=== PATIENT | female | born 1990 | race American Indian/Alaskan Native ===

== ENCOUNTER 2018-05-18 | Outpatient (CLI) | payer MEDICAID ==
[2018-05-18 00:27] VITALS: BP 118/71
--- NOTE | 2018-05-18 02:59 | Ultrasound Report ---
PROCEDURE: US OB BPP WO NON-STRESS TECHNIQUE: A limited OB sonogram was obtained for evaluation of the biophysical profile. HISTORY: decrease movement for BPP COMPARISONS: None FINDINGS: For breathing movements, a score of 2 out of 2 was obtained. For movements, score of 2 out of 2 was obtained. For posture and tone, a score of 2 out of 2 was obtained. Qualitative amniotic fluid volume, a score of 2 out of 2 was obtained. The heart rate is 152 BPM. IMPRESSION: Biophysical profile score is 8 out of 8.. This document is electronically signed by Tayo Swann MD., May 18 2018 02:57:26 AM ET
== END 2018-05-18 02:40 | disposition home or self-care (01) ==
LOC: TRG
PROVIDERS: ATTEND Obstetrics & Gynecology
DX: O47.03 False labor before 37 completed weeks of gestation, third trimester (principal); Z3A.28 28 weeks gestation of pregnancy
CPT/HCPCS: 76819

== ENCOUNTER 2018-06-13 00:11 | Outpatient (CLI) | payer MEDICAID ==
[2018-06-13] MEDS ORDERED: LACTATED RINGERS 500 ML IV ONE (00:27)
--- NOTE | 2018-06-13 01:45 | Ultrasound Report ---
PROCEDURE: US OB LIMITED TECHNIQUE: Real-time limited sonographic examination was performed for evaluation of well-bein g, labor for each fetus with image documentation (1 or more fetuses). HISTORY: pressure labor COMPARISONS: None . FINDINGS: There is a single fetus in a vertex presentation. The placenta is along the fundus of the uterus. The cervical length is 3.8 cm. heart rate 139 bpm. No other measurements are obtained on this stud y.. IMPRESSION: There is a single fetus in a vertex presentation. heart rate 139 bpm. The cervical length is 3. 8 cm. This document is electronically signed by Carly Pizarro DO., June 13 2018 01:43:42 AM ET
== END 2018-06-13 01:45 | disposition home or self-care (01) ==
LOC: TRG 00:11
PROVIDERS: ATTEND Obstetrics & Gynecology
DX: O26.893 Other specified pregnancy related conditions, third trimester (principal); R10.2 Pelvic and perineal pain; Z3A.32 32 weeks gestation of pregnancy
CPT/HCPCS: 59025; 76815

== ENCOUNTER 2018-06-26 20:37 | Outpatient (CLI) | payer MEDICAID ==
[2018-06-26] MEDS ORDERED: LACTATED RINGERS 500 ML IV ONE (21:09)
[2018-06-26 21:58] VITALS: BP 113/63
== END 2018-06-26 22:19 | disposition home or self-care (01) ==
LOC: TRG 20:37
PROVIDERS: ATTEND Obstetrics & Gynecology
DX: O62.8 Other abnormalities of forces of labor (principal); Z3A.34 34 weeks gestation of pregnancy
CPT/HCPCS: 59025

== ENCOUNTER 2018-07-10 21:30 | Outpatient (CLI) | payer MEDICAID ==
[2018-07-10 21:55] VITALS: BP 130/71
[2018-07-10] MEDS ORDERED: LACTATED RINGERS 500 ML IV ONE (21:56)
[2018-07-10 22:58] LABS: Hematocrit 28.4 % (30.3-42.9); Hemoglobin 9.3 gm/dl (10.1-14.3); Mean Corpuscular HGB Conc 33 % (30-34); Mean Corpuscular Volume 75 fl (79-97); Platelet Count 172 K/mm3 (140-440); Red Blood Count 3.76 M/mm3 (3.65-5.03); Red Cell Distribution Width 15.8 % (13.2-15.2)
[2018-07-11 00:28] LABS: Bacteria,Urine 1+ /HPF (Negative); Bilirubin,Urine NEG (Negative); Blood,Urine NEG (Negative); Color,Urine Yellow (Yellow); Mucus,Urine FEW /HPF; Protein,Urine <15 mg/dL mg/dL (Negative)
[2018-07-11 02:01] LABS: Alanine Aminotransferase 8 units/L (7-56); Albumin 2.9 g/dL (3.9-5); BUN/Creatinine Ratio 13; Blood Urea Nitrogen 5 mg/dL (7-17); Calcium 8.3 mg/dL (8.4-10.2); Hemolysis Index 6
== END 2018-07-11 02:45 | disposition home or self-care (01) ==
LOC: TRG 21:30
PROVIDERS: ATTEND Obstetrics & Gynecology
DX: O26.893 Other specified pregnancy related conditions, third trimester (principal); R42 Dizziness and giddiness; Z3A.36 36 weeks gestation of pregnancy
CPT/HCPCS: 36415; 59025; 80053; 81001; 85027; J7120; 96360; 96361

== ENCOUNTER 2018-07-26 20:40 | Outpatient (CLI) | payer MEDICAID ==
[2018-07-26 21:02] VITALS: BP 132/67
== END 2018-07-26 21:54 | disposition home or self-care (01) ==
LOC: TRG 20:40
PROVIDERS: ATTEND Obstetrics & Gynecology
DX: O47.1 False labor at or after 37 completed weeks of gestation (principal); Z3A.38 38 weeks gestation of pregnancy
CPT/HCPCS: 59025

== ENCOUNTER 2018-08-03 12:12 | Outpatient (CLI) | payer MEDICAID ==
[2018-08-03 16:24] VITALS: BP 129/74
== END 2018-08-03 17:09 | disposition home or self-care (01) ==
LOC: TRG 12:12
PROVIDERS: ATTEND Obstetrics & Gynecology
DX: O47.1 False labor at or after 37 completed weeks of gestation (principal); Z3A.39 39 weeks gestation of pregnancy
CPT/HCPCS: 59025

== ENCOUNTER 2018-08-03 19:01 | Inpatient (IN) | payer MEDICAID ==
[2018-08-03] MEDS ORDERED: BRETHINE SUB-Q PRN (19:36)
[2018-08-03] MEDS ORDERED: ZOFRAN IV PRN ×2 (19:36→22:03)
[2018-08-03] MEDS ORDERED: MINERAL OIL PO PRN (19:36)
[2018-08-03] MEDS ORDERED: PHENERGAN PO PRN ×2 (19:36→22:03)
[2018-08-03] MEDS ORDERED: SUBLIMAZE IV PRN (19:36)
[2018-08-03] MEDS ORDERED: XYLOCAINE 2% INFILTRATI ONE (19:36)
[2018-08-03] MEDS ORDERED: BRETHINE IVP PRN (19:36)
[2018-08-03] MEDS ORDERED: LACTATED RINGERS 1,000 ML IV SCH (20:00)
[2018-08-03] MEDS ORDERED: PITOCin/NS 20 UNIT/1000ML DRIP 20 UNITS/1,000 ML BAG IV SCH ×2 (20:00→22:03)
--- NOTE | 2018-08-03 20:42 | History and Physical Report ---
History of Present Illness Date of examination: 08/03/18 Date of admission: 08/03/18 19:25 Chief complaint: contractions History of present illness: Menstrual History Regularity: regular Duration: 5 LMP: 11/02/2017 LMP reliability: definite LMP character: normal test type: urine test Date: 04/07/2018 BC at conception: none Planned ? yes EDC Calculations LMP: 08/09/2018 EDC Confirmation: 08/09/2018 Gestational Age: 22 2/7 weeks Past History : 5 Term Births: 1 Premature Births: 0 Living Children: 1 Para: 1 Mult. Births: 0 Prev : 0 Aborta: 3 Elect. Ab: 0 Spont. Ab: 3 Ectopics: 0 # 1 Delivery date: 2009 Weeks Gestation: 6 Delivery type: SAB Comments: No D&C # 2 Delivery date: 04/10/2011 Weeks Gestation: 39 Delivery type: Hours of labor: 6 Anesthesia type: epidural Delivery location: [place] Sex: Female weight: 7-11 Name: Colin Comments: Elective induction kidney infection # 3 Delivery date: 2012 Weeks Gestation: ? Delivery type: SAB Comments: No D&C # 4 Delivery date: 2016 Weeks Gestation: 8 Delivery type: SAB Comments: No D&C Past Medical History: Negative Past Medical History Past Surgical History: umbilical hernia 6yo Family History Summary: Other family member - Has No Family History of Ovarvian Cancer - Entered On: 04/13/2018 Other family member - Has No Family History of Colon Cancer - Entered On: 04/13/2018 Other family member - Has No Family History of Breast Cancer - Entered On: 04/13/2018 Other family member - Has Family History of Hypertension - Entered On: 04/13/2018 General Comments - FH: Sarcoidosis Social History: Patient is [employer] Risk Factors: Smoked Tobacco Use: Never smoker Drug use: yes Substance: marijuana Alcohol use: yes Drinks per day: social Past Medical History Surgery (Non-obstetrics gyn): umbilical hernia 6yo Abnormal PAP: negative Uterine Anomaly: negative Family Hx: Sarcoidosis Social Hx: Patient is [employer] Infection History Hx of STD: none Personal hx. of genital herpes: no Genetic History Congenital Heart Defect: Mom: no Dad: no Ok Disease: Mom: no Dad: no Thalassemia Mom: no Dad: no Neural Tube Defect Mom: no Dad: no Down's Syndrome Mom: no Dad: no Daniel-Sachs Mom: no Dad: no Sickle Cell Disease/Trait Mom: no Dad: no Hemophilia Mom: no Dad: no Muscular Dystrophy Mom: no Dad: no Cystic Fibrosis Mom: no Dad: no Yodit Chorea Mom: no Dad: no Mental Retardation Mom: no Dad: no Fragile X Mom: no Dad: no Other Genetic/Chromosomal Disorder Mom: no Dad: no Child w/other defect Mom: no Dad: no Enviromental Exposures Xray Exposure: no Medication, drug, or alcohol use since LMP: no Chemical/Other Exposure: no Exposure to Cat Liter: no Active Medications (reviewed today): PLUS/IRON 27-1 MG ORAL TABLET ( VIT-FE FUMARATE-FA) 1 po q day as directed REGLAN TABLET (METOCLOPRAMIDE HCL TABS) Current Allergies (reviewed today): No known allergies Past History Past Medical History: other (see HPI) Past Surgical History: other (see HPI) ED SPECIAL EDUCATION TEACHER History: other (see HPI) Family/Genetic History: other (see HPI) Social history: other (see HPI) - Obstetrical History Expected Date of Delivery: 08/09/18 Actual Gestation: 39 Week(s) 2 Day(s) : 5 Medications and Allergies Allergies Allergy/AdvReac Type Severity Reaction Status Date / Time No Known Allergies Allergy Verified 06/13/18 00:32 Home Medications Medication Instructions Recorded Confirmed Last Taken Type No Known Home Medications [No 08/03/18 08/03/18 Unknown History Reported Home Medications] Active Meds: Active Medications Ephedrine Sulfate (Ephedrine Sulfate) 10 mg IV Q2M PRN PRN Reason: Hypotension Fentanyl (Sublimaze) 100 mcg IV Q2H PRN PRN Reason: Labor Pain Oxytocin/Sodium Chloride (Pitocin/Ns 20 Unit/1000ml Drip) 20 units in 1,000 mls @ 125 mls/hr IV DIRECT MANDO Lactated Ringer's (Lactated Ringers) 1,000 mls @ 125 mls/hr IV DIRECT MANDO Mineral Oil (Mineral Oil) 30 ml PO QHS PRN PRN Reason: Constipation Ondansetron HCl (Zofran) 4 mg IV Q8H PRN PRN Reason: Nausea And Vomiting Promethazine HCl (Phenergan) 25 mg PO Q6H PRN PRN Reason: Nausea And Vomiting Terbutaline Sulfate (Brethine) 0.25 mg SUB-Q ONCE PRN PRN Reason: Hyperstimulation/Hypertonicity Terbutaline Sulfate (Brethine) 0.25 mg IVP ONCE PRN PRN Reason: Hyperstimulation/Hypertonicity Review of Systems All systems: negative Genitourinary: leakage of fluid, contractions - Vital Signs Vital signs: Vital Signs Pulse BP 83 144/69 08/03/18 20:01 08/03/18 20:01 Temp Pulse Resp BP Pulse Ox 80 134/71 08/03/18 20:31 08/03/18 20:31 - Physical Exam Breasts: Cardiovascular: Regular rate, Normal S1, Normal S2 Lungs: Positive: Clear to auscultation, Normal air movement Abdomen: Positive: normal appearance, soft, normal bowel sounds. Negative: distention, tenderness Genitourinary (Female): Positive: normal external genitalia, normal perenium Vulva: both: normal Vagina: Positive: normal moisture. Negative: discharge Cervix: Negative: lesion, discharge Uterus: Positive: normal size, normal contour Adnexa: both: normal Anus/Rectum: Positive: normal perianal skin, heme negative. Negative: rectal mass, hemorrhoids Extremities: Deep Tendon Reflex Grade: Normal +2 - Obstetrical FHR: auscultation normal Results Result Diagrams: 08/03/18 20:19 All other labs normal. Assessment and Plan Patient presents to triage for c/o contractions SVE 7 per chiropractic assistant. Pt reports SROM, clear, 20 minutes prior to arrival. Pt transferred to R where she deliv ered spontaneously, vaginal delivery with shoulder dystocia. Orders in EMR. GBS negative.
--- NOTE | 2018-08-03 20:43 | Procedure Note ---
OB Delivery Note - Delivery Date of Delivery: 08/03/18 Operations Controller: ANICETO AQUINO Estimated blood loss: 300cc - Vaginal Delivery presentation: vertex Delivery position: OA (LILIBETH) Intrapartum events: shoulder dystocia (resolved in <60 seconds with McRobert's and suprapubic pressure) Delivery induction: none Delivery monitor: external FHT, external uterine Route of delivery: Delivery placenta: spontaneous Delivery cord: 3 umbilical vessels Episiotomy: none Delivery laceration: none (small vaginal abrasion, hemostatic, no repair needed) Anesthesia: none Delivery comments: Patient presented to triage for labor, SVE per RN is 7 cm. Pt reports SROM 20 minutes prior to arrival to hospital. Pt transferred to R and was complete, . Patient unmedicated and having difficulty maintaining control. Should dystocia noted after delivery of head, maternal effort in pushing is minimal. NICU and additional staff called to room for assistance with delivery. Delivery of anterior shoulder less than 60 seconds from time of delivery of head with McRobert's and suprapubic pressure maneuvers. Cord clamped x2 and cut by CNM, infant handed off to awaiting NICU/Resus team at [facility]. Placenta delivered complete and intact, 3vc. IM pitocin given as pt did not have IV access yet. Fundus is firm, ML, hemostasis achieved. Small vaginal abrasion noted, hemostatic, no repair necessary. VSSAF. Pt reports she is comfortable. Christina care provided. Infant apgars 8/9, weight 3979g . Infant to mother for skin to skin and initiation. Mother and LDR stable. - Infant A at 1 minute: 8 (3979grams) at 5 minutes: 9 Infant Gender: Male (8#)
[2018-08-03 21:50] LABS: Hematocrit 31.3 % (30.3-42.9)
[2018-08-03] MEDS ORDERED: TYLENOL PO PRN (22:03)
[2018-08-03] MEDS ORDERED: LANSINOH TP PRN (22:03)
[2018-08-03] MEDS ORDERED: TUCKS PAD TP PRN (22:03)
[2018-08-03] MEDS ORDERED: SODIUM CHLORIDE FLUSH SYRINGE 10 ML IV NR (22:03)
[2018-08-03] MEDS ORDERED: MILK OF MAGNESIA PO PRN (22:03)
[2018-08-03] MEDS ORDERED: DULCOLAX PR PRN (22:03)
[2018-08-03] MEDS ORDERED: BENADRYL PO PRN (22:03)
[2018-08-03 22:07] LABS: Hematocrit 31.1 % (30.3-42.9); Hemoglobin 9.9 gm/dl (10.1-14.3); Mean Corpuscular HGB Conc 32 % (30-34); Mean Corpuscular Volume 73 fl (79-97); Platelet Count 164 K/mm3 (140-440); Red Blood Count 4.24 M/mm3 (3.65-5.03); Red Cell Distribution Width 17.2 % (13.2-15.2)
[2018-08-03] MEDS: IBUPROFEN PO SCH (23:15)
[2018-08-04] MEDS: IBUPROFEN PO SCH ×5 (05:48→23:55)
--- NOTE | 2018-08-04 08:16 | Progress Note ---
Assessment and Plan pt doing well, no complaints. b/p 129-134/68-70, H&H ordered for 0834 - no s/s anemia. - Patient Problems (1) (normal spontaneous vaginal delivery) Current Visit: Yes Status: Acute Plan to address problem: lochia scant fundus firm Needs assistance with Continue pathway Anticipate d/c home tomorrow Subjective - Subjective Date of service: 08/04/18 Principal diagnosis: day #1 s/p w/ shoulder dystocia Patient reports: appetite normal, voiding normally, pain well controlled, ambulating normally, no dizzy ambulation, no nauseated : doing well (breast and bottle feeding), other (pt reports baby is moving both arms/hands) Objective - Vital Signs Latest vital signs: Vital Signs Temp Pulse Resp BP Pulse Ox 08/04/18 04:29 98.0 F 82 20 129/68 98 08/03/18 21:49 97.9 F 79 20 134/70 99 08/03/18 21:23 83 135/63 08/03/18 21:16 88 154/79 08/03/18 21:01 86 144/82 08/03/18 20:46 203 H 132/78 08/03/18 20:31 80 134/71 08/03/18 20:16 90 127/65 08/03/18 20:01 83 144/69 Intake and Output 08/03/18 08/04/18 08/04/18 23:59 07:59 15:59 Intake Total 240 120 Output Total 200 Balance 240 -80 Intake: Oral 240 Intake, Free Water 120 Output: Urine 200 Void 200 Other: Total, Intake Amount 240 Total, Output Amount 200 Weight 97.522 kg Estimated Blood Loss 300 - Exam Breasts: Present: normal, Cardiovascular: Present: Regular rate Lungs: Present: Clear to auscultation, Normal air movement Abdomen: Present: normal appearance, soft Vulva: both: normal Uterus: Present: normal, firm, fundal height at umbilicus Extremities: Present: normal Deep Tendon Reflex Grade: Normal +2 - Labs Labs: Abnormal lab results 08/03/18 08/03/18 Range/Units 20:19 20:19 Hgb 10.0 L 9.9 L (10.1-14.3) gm/dl MCV 73 L (79-97) fl MCH 23 L (28-32) pg RDW 17.2 H (13.2-15.2) %
[2018-08-04 10:46] LABS: Hematocrit 27.9 % (30.3-42.9); Hemoglobin 9.1 gm/dl (10.1-14.3)
[2018-08-04] MEDS: PRENATAL VITAMIN PO SCH (11:09)
[2018-08-05] MEDS: IBUPROFEN PO SCH (06:14)
--- NOTE | 2018-08-05 09:05 | Discharge Summary ---
Providers - Providers Date of Admission: 08/03/18 19:25 Date of discharge: 08/05/18 Attending physician: DARRYL BERTRAND Primary care physician: DARRYL BERTRAND Hospitalization Reason for admission: labor Condition: Good Pertinent studies: post delivery H&H 9.1/27.9, pre-existing anemia on admission, acute blood loss at delivery. Patient is asymptomatic Procedures: Hospital course: with shoulder dystocia. Uncomplicated course Disposition: DC-01 TO HOME OR SELFCARE Core Measure Documentation - Palliative Care Palliative Care/ Comfort Measures: Not Applicable - Core Measures Any of the following diagnoses?: none Exam - Constitutional Vitals: Temp Pulse Resp BP Pulse Ox 97.6 F 73 18 114/62 100 08/05/18 07:25 08/05/18 07:25 08/05/18 07:25 08/05/18 07:25 08/05/18 06:26 General appearance: Present: no acute distress, well-nourished - EENT Eyes: Present: PERRL ENT: hearing intact, clear oral mucosa - Neck Neck: Present: supple, normal ROM - Respiratory Respiratory effort: normal Respiratory: bilateral: CTA - Cardiovascular Heart Sounds: Present: S1 & S2. Absent: rub, click - Extremities Extremities: pulses symmetrical, No edema Peripheral Pulses: within normal limits - Abdominal General gastrointestinal: Present: soft, non-tender, non-distended, normal bowel sounds Female genitourinary: Present: normal - Integumentary Integumentary: Present: clear, warm, dry - Musculoskeletal Musculoskeletal: gait normal, strength equal bilaterally - Psychiatric Psychiatric: appropriate mood/affect, intact judgment & insight - Neurologic Neurologic: CNII-XII intact, moves all extremities - Additional findings Additional findings: Fundus firm, ML, U/1. Vaginal bleeding is small, patient denies any heavy bleeding or clots. Patient reports pain is well controlled with medication. She denies any complaints or concerns. VSSAF. Reviewed recent labs with patient, she denies any dizziness or feeling faint with ambulation or position changed. Pt reports is going well, no breast complaints. She reports infant is doing well, moving both upper extremities well. Encouraged increase in water intake. Plan Activity: no restrictions Diet: regular Follow up with: DARRYL BERTRAND MD [Primary Care Provider] - 09/02/18 (Congratulations! Please call [phone] to schedule your appointment in 4 weeks. Please schedule your son's circumcision appointment in our office in 1 week. Bring EMLA prescription with you to his appointment and await further instructions for use. Call with any questions or concerns. ) Prescriptions: Docusate Sodium [Colace] 100 mg PO BID PRN #60 capsule PRN Reason: Constipation Lidocain2.5%/Prilocai2.5% [Emla] 5 gm TP ONCE PRN #1 tube PRN Reason: Pain Ferrous Sulfate [Feosol 325 MG tab] 325 mg PO BID #60 tablet Ibuprofen [Motrin 800 MG tab] 800 mg PO Q8HR PRN #30 tablet PRN Reason: Pain
[2018-08-05] MEDS ORDERED: COLACE PO SCH (10:00)
[2018-08-05] MEDS ORDERED: FEOSOL PO SCH (10:00)
[2018-08-05] MEDS: PRENATAL VITAMIN PO SCH (10:04)
[2018-08-05 13:19] VITALS: BP 134/85
== END 2018-08-05 13:10 | disposition home or self-care (01) | DRG 775 ==
LOC: TRG 19:01 → LD 19:25 → TRG 19:25 → LD 20:51 → OB 21:53
PROVIDERS: ADMIT Obstetrics & Gynecology; ATTEND Obstetrics & Gynecology
PROC: 10E0XZZ Delivery of Products of Conception, External Approach (ICD-10-PCS; principal; 2018-08-03)
DX: O66.0 Obstructed labor due to shoulder dystocia (principal); Z3A.39 39 weeks gestation of pregnancy; Z37.0 Single live birth; Z82.49 Family history of ischemic heart disease and other diseases of the circulatory system; Z84.89 Family history of other specified conditions; O71.89 Other specified obstetric trauma; D62 Acute posthemorrhagic anemia; O99.02 Anemia complicating childbirth
CPT/HCPCS: 36415; 59025; 85014; 85018; 85027; 86592; 86850; 86900; 86901; G0378; J2590